=== PATIENT | female | born 1945 | race Caucasian/White ===

== ENCOUNTER 2016-10-04 05:12 | Day surgery (SDC) | payer MEDICARE, OTHER ==
[2016-10-03 15:02] LABS: HEMATOCRIT 34.7 % (36.0-48.0); HEMOGLOBIN 11.8 g/dL (12-16); MCH 33.3 pg (26.0-34.0); MEAN PLATELET VOLUME 10.3 fL (7.4-10.4); RBC 3.54 10x6/uL (4.00-5.40); RDW 14.2 % (11.5-14.5); WBC 6.2 10x3/uL (4.8-10.8)
[2016-10-03 15:35] LABS: ANION GAP 10.5 mmol/L (8-16); CALCIUM 8.6 mg/dL (8.5-10.1); CARBON DIOXIDE 31.3 mmol/L (21.0-32.0); CREATININE - SERUM 1.1 mg/dL (0.6-1.3); POTASSIUM - SERUM 3.8 mmol/L (3.5-5.1)
[~2016-10-04] VITALS: Ht 160 cm; Wt 86.2 kg
--- NOTE | ~2016-10-04 | OP ---
PATIENT NAME: MEHNAZ LINDO MEDICAL RECORD: [id number] :45 LOCATION:D.OPS ADMISSION DATE: SURGEON: JAMILA NAIK DPM DATE OF OPERATION: 10/04/2016 PREOPERATIVE DIAGNOSES: 1. Painful retained hardware, right foot. 2. Hallux abductovalgus, left foot. 3. Instability, left first met cuneiform joint. 4. Tailor's bunion, left foot. POSTOPERATIVE DIAGNOSES: 1. Painful retained hardware, right foot. 2. Hallux abductovalgus, left foot. 3. Instability, left first met cuneiform joint. 4. Tailor's bunion, left foot. PROCEDURES: 1. Right hardware removal. 2. Left Lang. 3. Left first met cuneiform joint fusion. 4. Left partial fifth met head resection. ANESTHESIA: General with local infiltrate utilizing lidocaine and Marcaine plain around the surgical site. Approximately 20 cc total. HEMOSTASIS: Right ankle tourniquet at 250 mmHg and left thigh tourniquet at 350 mmHg. PREOPERATIVE DETAILS: The patient was taken to the OR, placed on the operating table in supine position. This was followed by induction of general anesthesia and infiltration of local anesthetic. The bilateral extremities were then prepped and draped in usual aseptic technique followed by exsanguination of the right extremity and inflation of tourniquet at 250 mmHg. PROCEDURE NUMBER 1: Painful retained hardware removal, right foot. A 15 blade was used to create a small stab incision over the medial aspect of the first metatarsal overlying the painful hardware. The incision was deepened down to the pin, which was localized and utilizing a hemostat, it was removed. The wound was flushed and the skin was closed with 4-0 Rapide in a simple interrupted technique followed by Dermabond, Adaptic, 4 x 4 and Coban. The left extremity was then exsanguinated and the tourniquet was inflated at 350 mmHg. PROCEDURE NUMBER 2: Lang bunionectomy, left foot. A 15-blade was used to create an incision from the medial cuneiform on the dorsal aspect of the foot distally to the base of the proximal phalanx of the hallux. The incision was deepened down through subcutaneous tissue being sure to avoid all vital structures. Dissection was carried down to the first MPJ where an inverted L capsulotomy was performed, medial capsular flap was reflected and the head of the first metatarsal was delivered. A sagittal saw was used to resect the medial eminence. Attention was directed to the first interspace where a lateral release was performed. Good clinical reduction of the lateral contracture was verified. PROCEDURE NUMBER 3: First met cuneiform joint fusion, left foot. The incision OPERATIVE REPORT [id number] MEHNAZ LINDO as described in number 2, was deepened down to the periosteum aborting the medial dorsal cutaneous nerve. The first met cuneiform joint was delivered. A sagittal saw was used to resect the joint followed by temporary K-wire fixation and application of a 5-hole plate, 1 screw crossing the fusion site. Once the plate was in place, excellent rigid fixation was noted as well as alignment of the first ray, of course the temporary fixation was removed. The wound was flushed. The deep tissue as well as the first MPJ capsule repaired with 2-0 Vicryl, the subcutaneous tissue with 4-0 Rapide and the skin was closed with 4-0 Rapide in a subcuticular technique followed by Dermabond. PROCEDURE NUMBER 4: Partial fifth met head resection, left foot. A 15-blade was used to create a 2.5 cm linear incision over the dorsal aspect of the fifth MPJ. The incision was deepened down through subcutaneous tissue being sure to avoid all vital structures including the sural nerve. A longitudinal capsular incision was made in the fifth MPJ, exposing the 5th metatarsal head. A sagittal saw was used to resect the lateral one-third of the metatarsal head. Wound was flushed and the capsule was repaired with 4-0 Rapide. The subcutaneous tissue with 4-0 Rapide and the skin was closed with 4-0 Rapide in a subcuticular technique followed by Dermabond, Adaptic, 4 x 4 and Conform were used to dress the wounds followed by application of a modified Nguyen compression dressing. Tourniquet was deflated. POSTOPERATIVE DETAILS: The patient tolerated the procedure well and left the OR with vital signs stable and vascular status at preoperative levels. The patient was transferred to recovery per anesthesia in stable condition. TRANSINT:[id number] Voice Confirmation ID: [id number] DOCUMENT ID: [id number] JAMILA NAIK DPM CC: [id number] DICTATION DATE: 10/04/16930 MANAGER CLIENT: 10/04/16 1600 [facility] 10/04/16 [facility] [address] [id number]
[~2016-10-04 05:12] MED LIST: AMITRIPTYLINE100 MG PO; ARMOUR THYROID120 MG PO; IMITREX100 MG PO; INDERAL LA120 MG PO; LISINOPRIL2.5 MG PO; OS-CAL 500+D TA1 TAB PO; SUPER B COMPLE150 MG PO; SYNTHROID112 MCG PO; TOPAMAX25 MG PO; VITAMIN D31000 UNIT PO
[2016-10-04 07:05] VITALS: BP 145/97; Ht 160 cm; Wt 86.2 kg
== END 2016-10-04 11:15 | disposition home or self-care (01) ==
LOC: D.OPS 05:12 → D.PAN 09:00 → D.OPS 09:00
PROVIDERS: Anesthesiology
DX: T84.84XA Pain due to internal orthopedic prosthetic devices, implants and grafts, initial encounter (principal); M79.671 Pain in right foot; M20.12 Hallux valgus (acquired), left foot; M25.375 Other instability, left foot; M21.622 Bunionette of left foot; Z01.812 Encounter for preprocedural laboratory examination